=== PATIENT | female | born 1955 | race Caucasian/White ===

== ENCOUNTER 2018-08-26 08:19 | Emergency (ER) | payer MEDICARE ==
[2018-08-26 09:39] LABS: White Blood Cell (WBC) Count 3.9 thou/uL (4.8-10.8)
[2018-08-26 09:40] LABS: Band 1 % (5-11); Lymphocytes 11 % (21-51); MDiff Complete? YES; Manual Diff?? YES; Mean Corpuscular Hemoglobin 25.4 pg (27.0-31.0); Mean Corpuscular Volume 84.6 fL (78.0-98.0); Mean Platelet Volume 6.2 fL (7.4-10.4); Monocytes 6 % (0-10); Neutrophil 82 % (42-75); Platelet Count 285 thou/uL (130-400); RBC Distribution Width 14.5 % (11.5-14.5); Red Blood Cell (RBC) Count 3.94 mill/uL (4.20-5.40)
[2018-08-26 09:41] LABS: Anisocytosis SLIGHT = 6-15 cells (100X) (0-5/hpf); Platelet Morphology Comment Appears Adequate
[2018-08-26 09:45] LABS: Calc. Creatinine Clearance 0 mL/min (70-130); Estimated GFR-MDRD 31
[2018-08-26 09:48] LABS: Albumin 3.9 g/dL (3.4-4.8); Glucose 610 mg/dL (80-115)
[2018-08-26 09:50] LABS: Alkaline Phosphatase 82 U/L (40-150)
[2018-08-26 09:51] LABS: ALT (SGPT) 26 U/L (8-55); AST (SGOT) 23 U/L (5-34)
[2018-08-26 09:52] LABS: Anion Gap 20 mmol/L (10-20); BUN (Urea Nitrogen) 30 mg/dL (9.8-20.1); Bilirubin, Total 0.4 mg/dL (0.2-1.2); Calcium 9.3 mg/dL (7.8-10.44); Carbon Dioxide 23 mmol/L (23-31); Chloride 97 mmol/L (98-107); Globulin 3.4 g/dL (2.4-3.5); Lactic Acid 1.8 mmol/L (0.5-2.2); Potassium 4.5 mmol/L (3.5-5.1); Protein, Total 7.3 g/dL (6.0-8.3); Sodium 135 mmol/L (136-145)
[2018-08-26 09:53] LABS: INR-International Normal Ratio 0.9; Prothrombin Time 12.3 SEC (12.0-14.7)
[2018-08-26 10:35] LABS: Base Excess-Venous -1.4 mmol/L (-2.0 to 3.0); Bicarbonate (HCO3v) 26.4 mmol/L (22.0-28.0); CO2 Tension (PvCO2) 57.6 mmHg (40.0-50.0); Calcium, Ionized 1.14 mmol/L (See Comments:); Chloride 99 mmol/L (98-107); Hemoglobin - Calc 12.1 g/dL (12.0-16.0); Potassium 4.8 mmol/L (3.5-5.1); Sodium 134 mmol/L (138-145); T. Carbon Dioxide 28.2 mmol/L (22.0-28.0)
[2018-08-26] MEDS ORDERED: Iopamidol 370 76% 100 ML VIAL ONE (10:57)
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
== END 2018-08-26 11:16 | disposition home or self-care (01) ==
LOC: MADERS 08:19
DX: M54.2 Cervicalgia (principal); R10.9 Unspecified abdominal pain; M25.511 Pain in right shoulder; M54.9 Dorsalgia, unspecified; E87.1 Hypo-osmolality and hyponatremia; E11.65 Type 2 diabetes mellitus with hyperglycemia; N19 Unspecified kidney failure; V49.9XXA Car occupant (driver) (passenger) injured in unspecified traffic accident, initial encounter
CPT/HCPCS: 70450; 71260; 72125; 74177; 80053; 82330; 82435; 82803; 83605; 83735; 84132; 84295; 85014; 85025; 85610; 93005; 99284; G0390; 36415; Q9967